=== PATIENT | female | born 1965 | race Two or more races ===

== ENCOUNTER 2019-10-23 18:17 | Emergency (ER) | payer MEDICAID ==
[~2019-10-23] VITALS: Ht 167.6 cm; Wt 92.6 kg
[2019-10-23 18:19] VITALS: BP 166/93
== END 2019-10-23 19:38 | disposition home or self-care (01) ==
LOC: ER 18:17
DX: J06.9 Acute upper respiratory infection, unspecified (principal); I10 Essential (primary) hypertension